=== PATIENT | female | born 1970 | race Caucasian/White ===

== ENCOUNTER → 2017-01-17 | Outpatient (CLI) | payer BC ==
[~2017-01-17] MED LIST: ALUMSUS21 PO; B VITAMIN PO
--- NOTE | 2017-01-17 15:41 | DIAGNOSTIC IMAGING REPORT ---
CHEST 2 VIEWS ROUTINE CLINICAL HISTORY: Cough. COMPARISON STUDY: No previous studies for comparison. FINDINGS: Lung volumes are normal. No pneumothorax or pleural effusion is present. Pulmonary vascularity is normal. Cardiac size is normal. There is a small to moderate sized hiatal hernia. No consolidation is identified. IMPRESSION: 1. No acute cardiopulmonary findings. 2. Small to moderate sized hiatal hernia. Electronically signed by: Adalid Wall M.D. 01/17/2017 3:40 PM Dictated Date/Time: 01/17/2017 3:39 PM
== END | disposition home or self-care (01) ==
LOC: C.RADBC 15:21
PROVIDERS: ATTEND Nurse Practitioner
DX: R05 Cough (principal); Z87.09 Personal history of other diseases of the respiratory system; K44.9 Diaphragmatic hernia without obstruction or gangrene

== ENCOUNTER 2021-09-01 10:00 | Observation (INO) ==
--- NOTE | 2021-08-25 13:32 | PAT Medication Instructions ---
Medication Instructions Date of Service August 25, 2021 Home Medications famotidine-Ca carb-mag hydrox 10 mg-800 mg-165 mg chewable tablet (Pepcid Complete) 1 tab PO HS PRN levocetirizine 5 mg tablet (Xyzal) 5 mg PO HS Folic Acid Otc 1 tab PO HS acetaminophen 650 mg tablet,extended release 1,300 mg PO Q12H PRN diphenhydramine HCl 25 mg capsule (Benadryl) 25 - 50 mg PO HS PRN lactobacillus combination no.4 3 billion cell capsule (Probiotic) 3,000 mmu cells PO HS propranolol 20 mg tablet 10 mg PO TID Take morning of surgery With a small sip of water, OTHERWISE NOTHING TO EAT OR DRINK AFTER MIDNIGHT: acetaminophen 650 mg tablet,extended release 1,300 mg PO Q12H PRN (okay to take up to 4 hours prior to surgery if needed) propranolol 20 mg tablet 10 mg PO TID Take evening before surgery famotidine-Ca carb-mag hydrox 10 mg-800 mg-165 mg chewable tablet (Pepcid Complete) 1 tab PO HS PRN (if needed) levocetirizine 5 mg tablet (Xyzal) 5 mg PO HS Folic Acid Otc 1 tab PO HS acetaminophen 650 mg tablet,extended release 1,300 mg PO Q12H PRN (if needed) diphenhydramine HCl 25 mg capsule (Benadryl) 25 - 50 mg PO HS PRN (if needed) lactobacillus combination no.4 3 billion cell capsule (Probiotic) 3,000 mmu cells PO HS propranolol 20 mg tablet 10 mg PO TID Other Notes If you have any questions please call us at [phone] or [phone] or [phone] or [phone]
--- NOTE | 2021-08-30 09:30 | Anesthesiology Consultation ---
Date of Service August 30, 2021 Assessment & Plan (1) Encounter for pre-operative examination: Chart Review Chart Review: Acceptable Risk for Surgery (pending preop Covid testing results ) and Patient seen in Pre Admission Testing Per [facility] appt on 08/30/21, patient denies any recent travel. Was at outside concert 08/26/21- on [employer] Did not mask but did try to social distance. Did talk to friend but kept distance- also stopped at same friend's house on 08/27/21 but again- stayed on porch and tried to distance herself. Pt's friend did test Covid positive on 08/30/21 with home test. No current Covid related symptoms. No known Covid infection in the past 90 days. Pt is vaccinated for Covid. Did discuss with Dr. Garland (due to patient being outside and distanced- would not count as Covid exposure). Pt will call if any symptoms develop. Preop Covid testing done at [facility] appt 08/30/21= results pending. Educated on importance of self quarantining, social distancing and wearing mask in public for the patient one week prior to surgery and after Covid testing done Last seen by neuro 07/12/21= patient seen for follow-up on essential tremor and gait impairment. Substantial improvement in her tremor since propranolol started. Gait impairment since 2015 and prior to left knee pain. Patient is due for left total knee replacement in May 2021 but this was rescheduled to September 22, 2021. Patient did have MRI of head 08/13/2020 and MRI of C-spine on 04/10/2021 which were both unremarkable. Expect improvement of her gait after left total knee replacement on 09/22/2021. Word finding difficultysince 2016no obvious cognitive symptoms and normal MRI of the brain on 08/13/2020. Neuropsychological testing on 01/10/2021 was unremarkable. Ocular migraines. Last headache was spring 2020. Follow-up in 6 months. Per cardiology phone note 03/03/2021 = stress test reviewednormal heart function at rest. No regional wall motion abnormalities with dobutamine. Mild AR (similar to prior study). PFO not assessed but previously noted. No further cardiac testing warranted to planned orthopedic procedure. Given history of possible TIA/CVA and PFO he should continue aspirin and metoprolol without interruption for surgery. (Pt states neurologist took patient off ASA (risk greater than benefit) and metoprolol was changed to propanolol) Seen by cardio in the office on 02/02/21= patient seen for cardiology follow-up. History of possible stroke/PFO. Patient feeling well today. No recurrent hospitalization or strokelike symptoms. Rare episodes of palpitations lasting several secondsno sustained arrhythmias. Symptoms improved since initiation of metoprolol. Patient likely scheduled for orthopedic elective knee arthroplasty in future. Ongoing dyspnea cardiac risk factors discussed. Will order dobutamine stress echo for ischemic work-up. Palpitations are well controlled. Continue metoprolol. Follow-up in 6 months. History Surgery Operation Date: 09/01/21 12:50 Proposed Procedures p Left Total Knee Arthroplasty - Abdulaziz Garcia DO Height/Weight Height: 5 ft 6 in Weight: 103.1 kg Allergies Allergy/AdvReac Type Severity Reaction Status Date / Time fluconazole [From Diflucan] Allergy Intermediate Hives Verified 09/01/21 10:52 povidone-iodine Allergy Intermediate HIVES Verified 09/01/21 10:52 gold Au 198 Allergy Mild itchy Verified 09/01/21 10:52 copper Allergy Unknown Unknown Verified 09/01/21 10:52 adhesive AdvReac Severe IRRITATION Verified 09/01/21 10:52 TO HIVES-OVER HER BODY Medications Home Medications Medication Instructions Recorded Confirmed Last Taken famotidine-Ca carb-mag hydrox 10 1 tab PO HS PRN 11/10/19 09/01/21 08/31/21 22:00 mg-800 mg-165 mg chewable tablet (Pepcid Complete) levocetirizine 5 mg tablet (Xyzal) 5 mg PO HS 02/11/20 09/01/21 08/31/21 22:00 Folic Acid Otc 1 tab PO HS 04/05/21 09/01/21 08/31/21 19:00 acetaminophen 650 mg 1,300 mg PO Q12H PRN 04/05/21 09/01/21 08/25/21 tablet,extended release diphenhydramine HCl 25 mg capsule 25 - 50 mg PO HS PRN 04/05/21 09/01/21 08/30/21 (Benadryl) lactobacillus combination no.4 3 3,000 mmu cells PO HS 04/05/21 09/01/2122 billion cell capsule (Probiotic) propranolol 20 mg tablet 10 mg PO TID 04/05/21 09/01/21 09/01/21 08:00 Active Medications Generic Name Dose Route Start Last Admin Trade Name Mike PRN Reason Stop Dose Admin Acetaminophen 1,000 mg 09/01/21 06:00 09/01/21 10:37 Acetaminophen 500 Mg Tab PO 09/01/21 18:00 1,000 mg PREOP LEE Administration Dexamethasone 8 mg 09/01/21 06:00 09/01/21 10:36 Dexamethasone 4 Mg Tab PO 09/01/21 18:00 8 mg PREOP LEE Administration Famotidine 20 mg 09/01/21 06:00 09/01/21 10:36 Famotidine 20 Mg Tab PO 09/01/21 18:00 20 mg PREOP LEE Administration Gabapentin 900 mg 09/01/21 06:00 09/01/21 10:36 Gabapentin 900 Mg Dose PO 09/01/21 18:00 900 mg PREOP LEE Administration Lactated Ringer's 1,000 mls @ 15 mls/hr 09/01/21 06:00 09/01/21 10:54 Lr IV 09/01/21 18:00 15 mls/hr .Q24H LEE Administration Lactated Ringer's 1,000 mls @ 60 mls/hr 09/01/21 06:00 09/01/21 10:54 Lr IV 09/01/21 22:39 Not Given .[id number] LEE Past Medical History Medical History (Updated 08/30/21 @ 14:16 by Nancy Whittaker PA-C) Essential tremor FAMILIAL TREMOR AND GAIT IMPAIRMENT (SECONDARY TO KNEE PAIN) SINCE 2015 (FOLLOWS WITH NEURO) Takes propranolol - tremor improved Follows with [facility] neurologist - Dr. Raul Mcghee Fatty liver Fibromyalgia Gastroparesis GERD (gastroesophageal reflux disease) Well controlled History of anesthesia reaction woke up during one of her hemangioma removals History of Lyme disease Lymes neuritis per records Hypertension MILD Paroxysmal atrial tachycardia PFO (patent foramen ovale) with shunt during valsalva per [facility] cardio Retinal migraine Stroke Silent- found 3 spots in brain from scan at the beginning of 2019-- incidentally noted Per records "possible pass TIA/stroke vs complex migraines with abnormal MRI" Thyroid nodule MULTIPLE THYROID NODULES - UNDER OBSERVATION Exercise / Class Metabolic Activity II 4-5 Yardwork/Stairs/Walk up hill (one flight of stairs- no chest pain or SOB ) Past Family History Family History Father Diabetes Bipolar disorder Heart disease Spinal stenosis Mother Essential tremor Atrial fibrillation Migraine Hypertension Aunt Family hx of colon cancer Other No family history of adverse response to anesthesia Past Surgical History Surgical History H/O laparoscopy Hemangioma x2--REMOVAL FROM FACE History of anesthesia reaction colonoscopy and egd, states her blood pressure had dropped Hx of colonoscopy Hx of esophagogastroduodenoscopy and bx of liver S/P hysterectomy TOTAL Past Anesthesia History No Hx of Anesthesia Complications (WITH EXCEPTION TO AWARENESS WITH FIRST HEMANGIOMA REMOVAL; POSSIBLE HYPOTENSION WITH 2020 C-SCOPE AT [facility] (BP IN 50'S SYSTOLICALLY PER ANESTHESIA RECORD)) and No Family Hx of Anesthesia Complications History of PONV No Hx of PONV (NARCOTICS CAUSE NAUSEA ) and No Hx of Motion Sickness Social History Smoking Status: Never smoker Do You Dip or Chew Tobacco: No Hx Alcohol Use: Yes Alcohol type: wine alcohol intake frequency: holidays/special occasions only Hx Substance Use: No substance use type: does not use Review of Systems Occ snoring- no witnessed apnea- no hx of sleep study Patient denies chest pain, shortness of breath at rest, cough, wheezing, palpitations. No hx of seizures, [place]. No hx of blood clots or blood transfusions Physical Exam Vital Signs Last Vital Signs Temp 37.4 C 09/01/21 10:58 Pulse 75 09/01/21 10:58 Resp 18 09/01/21 10:58 BP 126/87 09/01/21 10:58 Pulse Ox 95 09/01/21 10:58 VITALS BP 139/87 P 65 TEMP 98.1 SP02 97% RESP 16 Constitutional no acute distress ENMT Mouth: no TMJ clicking Thyromental Distance: > or= 3.5 Finger Breadths (3.5) Mallampati Class: III Neck neck extension not limited Respiratory normal respiratory effort; no respiratory distress Auscultation: lungs clear to auscultation bilaterally; no wheezes Cardiovascular Rate/Rhythm: regular rate and regular rhythm Heart Sounds: no murmur Vessels: no carotid bruit Musculoskeletal Spine: no pain with cervical ROM Extremities: extremities normal to inspection Psychiatric Orientation: alert Lab Results Anesthesia Preop Results Results Anesthesia Widget: WBC 8.56 K/uL (4.8-10.8) 08/30/21 Hgb 15.5 g/dL (12.0-16.0) 08/30/21 Hct 46.1 % (37-47) 08/30/21 Plt 297 K/uL (130-400) 08/30/21 Na 140 mmol/L (136-145) 08/30/21 K 4.3 mmol/L (3.5-5.1) 08/30/21 Cl 106 mmol/L (98-107) 08/30/21 CO2 29 mmol/L (21-32) 08/30/21 BUN 16 mg/dl (6-23) 08/30/21 Creat 0.79 mg/dl (0.6-1.2) 08/30/21 Glucose Level 99 mg/dl (70-99(Fasting)) 08/30/21 PT 10.2 Seconds (9.0-12.0) 08/30/21 PTT 27.8 Seconds (21.0-31.0) 08/30/21 INR 1.0 (0.9-1.1) 08/30/21 SARS-CoV-2, RNA, NAAT NEGATIVE (NEGATIVE) 09/01/21 Blood Type O Negative 08/30/21 Antibody Screen NEGATIVE 08/30/21 Testing Electrocardiogram Date: 02/02/21 Findings: + SB @ (55bpm) Low voltage QRS, consider pulmonary disease, pericardial effusion or normal variant When compared to EKG from July 01, 2020ventricular rate has decreased by 27 bpm, minimal criteria for anterior infarct are no longer present per cardio. Chest X-Ray Date: 08/30/21 Findings: + NAD Echocardiogram Date: 05/07/19 EF: 65-59% LV Function: normal RWMA: + none Other Findings: no LVH No evidence of atrial septal defect. No interatrial shunt is detected with administration of agitated saline at rest. Mild right to left interatrial shunt is present with the administration of agitated saline contrast on Valsalva maneuver suggestive of small PFO. Mild AR. Stress Test Date: 03/01/21 Type: DSE Resting EF: 60-64% Resting LV Function: normal Resting RWMA: + none Stress echo was negative for inducible ischemia. MPHR 100% The EKG response showed no evidence of ischemia. No arrhythmias were noted with stress. Mild aortic valve regurgitationaortic regurgitation jet is eccentric and impinges on the anterior mitral valve leaflet. Compared to previous study performed 05/07/2019, mild right to left interatrial shunt was demonstrated with the administration of agitated saline contrast at the time suggestive of small PFO. Repeat contrast injection was not performed on present study. The degree of aortic regurgitation is stable without significant interval change. Other Testing Head MRA 06/03/2019 = unremarkable MR angiogram of the brain. Neck MRA 06/03/2019 = unremarkable MR angiogram of the neck Holter monitor 05/08/19= min HR 47 bpm, max HR 156 bpm and average HR 81 bpm. Underlying rhythm was sinus rhythm. 3 SVT runs occurred, the run with the fastest interval lasting 4 beats with a max rate of 154 bpm, the longest lasting 7 beats with an average heart rate of 110 bpm. Some episodes of SVT may be possible atrial tachycardia with variable block. Idioventricular rhythm was present. Isolated SVE's were rare, SVE couplets were rare, and SVE triplets were rare. Isolated VE's were rare, VE couplets were rare, and VE triplets were rare. Ventricular bigeminy and trigeminy were present. Patient markers and diary entries correlated with sensed ventricular ectopy and a 4 beat run of idioventricular rhythm. No atrial fibrillation or flutter was observed. Brain MRI 04/27/2019 = several small old right cerebellar hemispheric infarcts. Remainder of brain parenchyma normal. No acute intracranial pathology. No abnormal enhancement.
[~2021-09-01 10:00] MED LIST changes: +ACETAMINOPHEN 500 MG TAB PO SCH; -ALUMSUS21 PO; -B VITAMIN PO; +BUPIVACAINE 0.5 % 5 MG/1 ML PF 10ML VIAL ONE; +FAMOTIDINE 20 MG TAB PO SCH; +GABAPENTIN 900 MG DOSE PO SCH; +Ketorolac (*for OR use only*) 30 MG, dexAMETHasone 4 MG, KETAMINE HCL (**OR use only) 1... INFIL SCH; +LR 500ML BOLUS, THEN 15ML/HR IV SCH; +LR 60ML/HR IV SCH; +ROPIVACAINE 0.5% 5 MG/ML 30 ML VIAL ONE; +TRANEXAMIC ACID 1,000 MG **IV Intra-op IV SCH; +TRANEXAMIC ACID 1,000 MG **IV Pre-op IV SCH; +dexAMETHasone 4 MG TAB PO SCH
--- NOTE | 2021-09-01 10:17 | History & Physical Bridge Note ---
Date of Service September 01, 2021 History & Physical Bridge Note I have examined the patient, reviewed the History & Physical and in the interval since the performance of the History & Physical I have noted the following changes of clinical significance: no changes noted
[2021-09-01] MEDS ORDERED: fentaNYL citrate 100 MCG/2 ML VIAL ONE (11:27)
[2021-09-01] MEDS ORDERED: MIDAZOLAM HCL 1 MG/ML 2ML VIAL ONE ×2 (11:27)
[2021-09-01] MEDS ORDERED: fentaNYL citrate 100 MCG/2 ML VIAL IV PRN (12:24)
[2021-09-01] MEDS ORDERED: ATROPINE SULFATE 0.1 MG/ML 10ML SYR IV PRN (12:24)
[2021-09-01] MEDS ORDERED: HYDROmorphone INJ 2 MG/ML SYR/VIAL IV PRN (12:24)
[2021-09-01] MEDS ORDERED: ONDANSETRON INJ 2 MG/ML 2 ML VIAL IV PRN ×2 (12:24→15:44)
[2021-09-01] MEDS ORDERED: ePHEDrine sulfate 50 MG/ML AMP IV PRN (12:24)
[2021-09-01] MEDS ORDERED: ORTHO JOINT ANESTHETIC ONE (12:25)
[2021-09-01] MEDS: ceFAZolin 2000MG 2,000 MG/15 ML SYR IV SCH ×3 (12:40→19:45)
[2021-09-01] MEDS ORDERED: PROPOFOL IV EMULSION 10 MG/ML 20 ML VIAL IV ONE (14:09)
[2021-09-01] MEDS ORDERED: LIDOCAINE 2% 2 ML VIAL/AMP(20MG/ML) INFIL ONE (14:09)
--- NOTE | 2021-09-01 14:10 | Operative Report ---
PG Post Operative Report Pre & Post Diagnosis Operation Date: 09/01/21 12:50 Pre-Op Diagnosis: Degenerative Joint Disease Left Knee Post-Op Diagnosis: Degenerative Joint Disease Left Knee I identified the patient and participated in the time-out.: Yes Procedure Operation Date: 09/01/21 12:50 Actual Procedures p Left Total Knee Arthroplasty(Left) - Abdulaziz Garcia DO Surgeon Abdulaziz Garcia DO Block Mechanic Abdulaziz Melvin PAC Estimated Blood Loss 50 Findings Consistent with Post-Op Diagnosis Specimens Left femoral and tibial bone Complications none Disposition Disposition: Recovery Room Indications Birgit is a pleasant 50-year-old female who is been dealing with chronic increasing left knee pain. X-rays and clinical examination were diagnostic for advanced osteoarthritis of the left knee. After failing conservative treatment, she elected proceed with a left total knee arthroplasty. Description of Procedure Implants used: I used a Asael Persona total knee arthroplasty system with a size 7 narrow femur, D tibia, 31 oval patella, and a size 13 medial congruent polyethylene bearing. All components were cemented in place with Biomet cement. Birgit arrived [facility] for the above procedure. She was seen in the preoperative holding area and the operative extremity was identified and signed. She was given a preoperative antibiotic, TXA, a spinal anesthetic and an adductor nerve block. She was taken back to the operating room and laid on the table in supine position. She was given basic sedation. The operative knee was then prepped and draped in sterile fashion. A timeout was done, and the patient and the operative extremity was properly identified. A midline incision was made directly over the patella. Dissection was taken down to the extensor mechanism. A subvastus arthrotomy was used. The medial retinaculum was released and the fat pad was mostly excised. The knee was flexed and the ACL, PCL, and meniscus were removed. A drill was sent down the center of the femoral canal followed by an intramedullary shelly. Off that shelly a distal femoral cutting block was placed. 9 mm was resected off the distal femur at 5 of valgus. A posterior referencing AP sizing guide was then placed on the distal femur. The femur measured to be a size 7. 2 drill holes were placed in 3 of external rotation. A 4-in-1 cutting block was then impacted into place. Anterior, posterior, and chamfer cuts were then made. The proximal tibia was then exposed. An external tibial alignment guide was placed. A tibial cut guide was then anchored in place and the proximal tibia was then resected. The posterior aspect of the knee was then opened up and any additional meniscus fragments and osteophytes were removed. The tibia measured to be a size D. The tibial plate was then placed in the appropriate rotation and the tibia was drilled and punched. Trial components were then placed. I used a size 13 medial congruent polyethylene insert. The knee was brought through a full range of motion and felt to be stable. The peg holes for the femoral component were then drilled. The patella was then everted and 9 mm was resected off the posterior aspect of the patella. The patella measured to be a size 31 oval. 3 peg holes were then drilled. A trial patella was placed. The knee was once again brought through a full range of motion and felt to be stable. Trial components were then removed. The surrounding soft tissues were injected with 100 cc of an orthopedic pain control cocktail. All components were then cemented into place with Biomet cement. The final polyethylene insert was then snapped into place. Once cement was dry the tourniquet was deflated. Hemostasis was obtained. A dilute betadyne lavage was then done for 3 minutes. The joint was then irrigated with normal saline solution. The subvastus arthrotomy was then closed with #1 Vicryl suture. The skin was closed with 2-0 Vicryl, 3-0V lock suture, and irwin. A soft compressive dressing was placed. She was then transferred to a hospital bed and taken to the postanesthesia care unit in stable condition. She tolerated the procedure well. Abdulaziz Melvin PA-C, was present for the entire procedure. He was critical for patient positioning, prepping, draping, retraction exposure, wound closure and application of sterile dressing. I attest to the content of the Intraoperative Record and any orders documented therein. Any exceptions are noted below.
--- NOTE | 2021-09-01 14:53 | Anesthesiology Progress Note ---
Date of Service September 01, 2021 Anesthesia Post Procedure Vital Signs Vital Signs: Temp Pulse Pulse Resp BP Pulse Ox 09/01/21 14:45 64 18 129/79 98 09/01/21 14:35 80 20 133/75 98 09/01/21 14:29 37.0 C 79 12 116/81 96 09/01/21 10:58 37.4 C 75 18 126/87 95 Transfer of Care Handoff Completed per policy Notes Mental Status: alert / awake / arousable and participated in evaluation Patient Amnestic to Procedure: Yes Nausea / Vomiting: adequately controlled Pain: adequately controlled Airway Patency, RR, SpO2: stable & adequate BP & HR: stable & adequate Hydration State: stable & adequate Anesthetic Complications: no major complications apparent and Pt Satisfied with anesthetic care
[2021-09-01] MEDS ORDERED: METOCLOPRAMIDE HCL INJ 5 MG/ML 2 ML VIAL IV PRN (15:44)
[2021-09-01] MEDS ORDERED: NALOXONE HCL 0.4 MG/1 ML VIAL/CARP IV PRN (15:44)
[2021-09-01] MEDS ORDERED: MAGNESIUM HYDROXIDE SUSP 30 ML UDC PO PRN (15:44)
[2021-09-01] MEDS ORDERED: bisacodyL 10 MG SUPP PR PRN (15:44)
[2021-09-01] MEDS ORDERED: oxyCODONE HCL IR 5 MG TAB (IMMEDIATE RELEASE) PO PRN (15:44)
[2021-09-01] MEDS ORDERED: HYDROmorphone INJ 0.5 MG/0.5 ML SYR IV PRN (15:44)
[2021-09-01] MEDS: SODIUM CHLORIDE 0.9% 1000ML 1,000 ML IV SCH (16:04)
--- NOTE | 2021-09-01 16:46 | XRay Report ---
XR knee LT 1 or 2V routine CLINICAL HISTORY: Surgical Post Op. Status post total knee replacement COMPARISON STUDY: 04/13/2019 TECHNIQUE: 2 left knee views FINDINGS: The patient is status post total knee replacement. The prosthetic components are in anatomi c alignment with no acute abnormality seen. Air is present within the soft tissues from the procedure . Skin irwin are seen anteriorly. IMPRESSION: 1. Status post total knee replacement ACT 112: Negative or not required by law. Electronically signed by: Rl Arroyo M.D. 09/01/2021 4:44 PM
[2021-09-01] MEDS: KETOROLAC 30 MG/ML VIAL IV SCH (19:45)
[2021-09-01] MEDS: PROPRANOLOL HCL 10 MG TAB PO SCH (19:48)
[2021-09-01] MEDS: DOCUSATE SODIUM 100 MG CAP PO SCH (19:49)
[2021-09-01] MEDS: ASPIRIN 81 MG ECTAB PO SCH (19:49)
[2021-09-01] MEDS ORDERED: FOLIC ACID 400 MCG TAB PO SCH (21:00)
[2021-09-01] MEDS ORDERED: SENNA 8.6 MG TAB PO SCH (21:00)
[2021-09-01] MEDS ORDERED: CETIRIZINE HCL 10 MG TABLET PO SCH (21:00)
[2021-09-01] MEDS: ACETAMINOPHEN 500 MG TAB PO SCH (22:12)
[2021-09-02] MEDS: KETOROLAC 30 MG/ML VIAL IV SCH ×2 (01:46→06:44)
[2021-09-02] MEDS: SODIUM CHLORIDE 0.9% 1000ML 1,000 ML IV SCH (01:51)
[2021-09-02] MEDS: ceFAZolin 2000MG 2,000 MG/15 ML SYR IV SCH (05:57)
[2021-09-02] MEDS: ACETAMINOPHEN 500 MG TAB PO SCH (05:57)
--- NOTE | 2021-09-02 07:22 | Orthopedic Progress Note ---
Date of Service September 02, 2021 Assessment & Plan (1) Status post left knee replacement: Overall she is doing very well. She is not having too much pain in the left knee. She is on aspirin for DVT prophylaxis. She will be seen by physical therapy today for ambulation and range of motion exercises. She can be discharged home later today. She will follow-up with orthopedics in 2 weeks. Hanna Genao was seen and examined at bedside this morning. Overall she doing very well. She is not having much pain in the left knee. She has been up and walking to the bathroom. She has no complaints. . Review of Systems All systems reviewed & are unremarkable except as noted in HPI & below. Physical Exam On physical examination of the left knee, the leg is out full extension. The dressing is clean and dry. She has active dorsiflexion and plantarflexion of her left ankle. . Results & Data Results & Data Laboratory Results . Diagnostic Findings X-rays of the left knee show the prosthesis to be in anatomic alignment without any evidence of fracture, desiccation, or loosening. . PG Care Time/CCT Total # of Minutes Spent Total Time Spent with Patient: Total time spent is greater than 50% in coordination of care (as documented) at patient's floor/unit and/or counseling patient: Coding Level of Care Code 20457 Post Operative Follow-Up Diagnoses Status post left knee replacement Z96.652
--- NOTE | 2021-09-02 07:23 | Discharge Summary ---
Date of Service September 02, 2021 Principal Diagnosis Same as "Discharge Diagnosis" noted below under Discharge Instructions. Discharge Exam On physical examination of the left knee, the leg is out full extension. The dressing is clean and dry. She has active dorsiflexion and plantarflexion of her left ankle. . Discharge Data Procedures Performed Operation Date: 09/01/21 12:50 Actual Procedures p Left Total Knee Arthroplasty(Left) - Abdulaziz Garcia DO Ordered Studies 09/01/21 05:00 US - OR guided needle placemen Routine Hospital Course (1) Status post left knee replacement: On September 01, 2021 Birgit arrived at [facility] and underwent a left knee replacement without complication. She had a spinal anesthetic. Postoperatively she was started on aspirin for DVT prophylaxis and transferred to the general orthopedic floors. Her hospital course was uneventful. On postop day #1, her vital signs were stable and her pain was well controlled. She was able to participate well with physical therapy doing ambulation and range of motion exercises. She was then discharged home. She will follow-up with orthopedics in 2 weeks. PG Care Time/CCT Total # of Minutes Spent Total Time Spent with Patient: Total time spent is greater than 50% in coordination of care (as documented) at patient's floor/unit and/or counseling patient: Discharge Plan Discharge Items Patient Disposition: Home - Home Health Services Reason For Visit: POST OP Discharge Diagnosis: Left knee replacement Activity: Per Instructions section Non-emergency contact: Surgeon Call non-emergency contact if: your wound has increased redness and your wound has increased drainage Follow-up/Referrals: Deepa Turcios DO [Primary Care Provider] - Diet: Regular Addtl Attending Provider Instructions: Activity and Therapy Recommendations: * If you are using [facility] then therapy will be provided at your home until they feel you have accomplished all of your goals. * If you are using [facility] then Physical Therapy will be provided until they feel you are ready to start Outpatient Physical Therapy. * If you are not using home therapy then Outpatient Physical Therapy should start about 3-5 days from your day of surgery. Therapy will last about 6-10 weeks * It is important not to put a pillow under your knee when you are relaxing or sleeping. It is just as important to make sure you are getting your knee perfectly straight as it is to regain your knee bend. * You were shown a series of exercises in the hospital. Do these exercises three times each day including the exercises you were shown in physical therapy. * Get up and walk several times each day. For the first four weeks, try not to stand or walk for more than one hour at a time. If you do stand or walk for more than one hour, you will not hurt anything, but your leg will likely swell. * As you feel comfortable, you may change from the walker or crutches to a cane and then to independent walking. Medications: * Narcotic You will likely be sent home from the hospital with a prescription for the narcotic pain medication that worked best throughout your stay. * Aspirin Most patients will be required to take Aspirin 81mg twice a day for 6 weeks after surgery. This is obtained [id number] and a prescription is not necessary. * Other medications may be prescribed for specific circumstances. If you have any questions, please call the office at . * Resume previous home medications unless otherwise instructed TEDs/Elastic Stockings: The white elastic stockings help limit swelling and prevent blood clots from fo rming in your legs.~ The more you wear them, the more they work. Wear them for six weeks. Dressing Care: The dressing can be changed after physical therapy on postop day #1. Daily dry dressing changes for a few days, especially if the incision is still draining some. If the incision is not draining then you may leave the irwin open to air. If there is a little bit of drainage or if the irwin are getting stuck on your clothing then cover the incision with a dry dressing. The irwin will be removed at your 2 week follow-up appointment. Showering: You may shower 5 days from the day of surgery as long as the incision is no longer draining. You may shower with the irwin exposed. Let soapy water run over the irwin and pat them dry. Do not scrub or soak the incision. Things To Watch For: * Drainage from the incision site that occurs more than one week after your surgery. * Increased redness at the incision site. * Fever above 102 degrees Fahrenheit. * Unusual chest pain or shortness of breath. * Call [facility] at with any of the above problems Follow-Up Visit: Follow-up with Dr. Garcia's PA (Abdulaziz Melvin) 2-3 weeks after your day of surgery. He will remove your irwin and answer any questions. If you have any additional questions or concerns, Dr Garcia is usually in the office at the same time and will be available An appointment was probably scheduled when you signed-up for surgery in the office. If you have any questions call Office Instructions: More detailed instructions as well as Frequently Asked Questions were provided in a folder by our office when you signed-up for surgery. Please review these instructions when you get home. If you have any further questions or concerns, please feel free to call the office at [phone] Pending Studies at Discharge: No Stand-Alone Forms: My [facility] Medications and DC Order Prescriptions: New oxycodone-acetaminophen 5-325 mg tablet 1 tab PO Q6H PRN (Reason: pain) Qty: 30 RF: 0 aspirin 81 mg Tablet,Delayed Release (Dr/Ec) 81 mg PO BID 42 Days Qty: 84 RF: 0 Continued levocetirizine [Xyzal] 5 mg tablet 5 mg PO HS RF: 0 Pepcid Complete 10-800-165 mg Tablet,Chewable 1 tab PO HS PRN (Reason: Acid Reflux) RF: 0 propranolol 20 mg Tablet 10 mg PO TID RF: 0 diphenhydramine HCl [Benadryl] 25 mg Capsule 25 - 50 mg PO HS PRN (Reason: Allergy Symptoms) RF: 0 Probiotic 3 billion cell Capsule 3,000 mmu cells PO HS RF: 0 Folic Acid Otc 1 tab PO HS RF: 0 acetaminophen [Tylenol Arthritis] 650 mg Tablet Extended Release 1,300 mg PO Q12H PRN (Reason: Pain) RF: 0 Discharge Orders: Discharge Order (Routine); Ordered 09/02/21 Ordered By: Abdulaziz Garcia Admission Data Admit Date/Time: 09/01/21 14:28 Attending Provider: Abdulaziz Garcia Admit Provider: Abdulaziz Garcia Primary Care Provider: Deepa Turcios
[2021-09-02] MEDS ORDERED: dexAMETHasone 4 MG TAB PO SCH (08:00)
[2021-09-02] MEDS ORDERED: MULTIVITAMIN TAB PO SCH (09:00)
[2021-09-02] MEDS: PROPRANOLOL HCL 10 MG TAB PO SCH (09:43)
[2021-09-02] MEDS: ASPIRIN 81 MG ECTAB PO SCH (09:43)
[2021-09-02] MEDS: DOCUSATE SODIUM 100 MG CAP PO SCH (09:43)
== END 2021-09-02 13:51 | disposition home health service (06) ==
LOC: ASU 10:00 → 3W 10:00
DX: Z79.899 Other long term (current) drug therapy; Z91.041 Radiographic dye allergy status; M17.12 Unilateral primary osteoarthritis, left knee; K21.9 Gastro-esophageal reflux disease without esophagitis; Z88.8 Allergy status to other drugs, medicaments and biological substances; I10 Essential (primary) hypertension; Z88.3 Allergy status to other anti-infective agents